=== PATIENT | female | born 1935 | race Caucasian/White ===

== ENCOUNTER 2022-08-26 15:22 | Outpatient (CLI) | payer MEDICARE, BC | END 2022-08-26 15:23 | disposition home or self-care (01) | LOC: CSHCT 15:22 | PROVIDERS: ATTEND Family Medicine | DX: M54.16 Radiculopathy, lumbar region (principal); M48.061 Spinal stenosis, lumbar region without neurogenic claudication; M48.07 Spinal stenosis, lumbosacral region | CPT/HCPCS: 72131 ==

== ENCOUNTER 2023-01-20 10:26 | Day surgery (SDC) | payer MEDICARE ==
[2023-01-16 08:40] VITALS: BP 172/81; TEMP 97.8; BMI 22.4
[~2023-01-20 10:26] MED LIST: FLU VACC QS2022-23(65YR UP)/PF 240 MCG/0.7 ML SYRINGE IM ONE
[2023-01-20] MEDS ORDERED: Sodium Bicarbonate 2.5 MEQ/5 ML VIAL ONE (10:49)
[2023-01-20] MEDS ORDERED: Lidocaine 1% PF 5 ML VIAL ONE (10:49)
== END 2023-01-20 13:20 | disposition home or self-care (01) ==
LOC: CSHRAD 10:26
PROVIDERS: ATTEND Neurological Surgery
DX: M48.062 Spinal stenosis, lumbar region with neurogenic claudication (principal); M47.816 Spondylosis without myelopathy or radiculopathy, lumbar region
CPT/HCPCS: 62304; 72132

== ENCOUNTER 2023-04-15 12:57 | Emergency (ER) | payer MEDICARE ==
[~2023-04-15 12:57] MED LIST changes: -FLU VACC QS2022-23(65YR UP)/PF 240 MCG/0.7 ML SYRINGE IM ONE; +Iopamidol 300 61% 100 ML VIAL FS ONE
[2023-04-15 13:47] LABS: #Basophils 0.1 10x3/uL (0.0-0.2); #Eosinphils 0.1 10x3/uL (0.0-0.5); #Monocytes 0.8 10x3/uL (0.0-1.1); #Neutrophils 9.6 10x3/uL (1.5-8.4); %Basophils 0.4 % (0.0-2.0); %Eosinophils 1.2 % (0.0-6.0); %Lymphocytes 10.4 % (18.0-47.0); %Monocytes 6.4 % (0.0-10.0); %Neutrophils 81.2 % (40.0-75.0); Hemoglobin 9.5 g/dL (12.0-15.5); Mean Corpuscular HGB CONC 30.5 g/dL (32.0-36.0); Mean Corpuscular Hemoglobin 26.8 pg (27.0-33.0); Mean Corpuscular Volume 87.6 fl (81.6-98.3); Mean Platelet Volume 10.3 fl (7.4-10.4); Platelet Count 154 10x3/uL (150-450); Red Blood Cell (RBC) Count 3.55 10x6/uL (3.90-5.03); White Blood Cell (WBC) Count 11.8 10x3/uL (3.5-10.5)
[2023-04-15 13:59] LABS: ALT (SGPT) 17 U/L (8-55); AST (SGOT) 27 U/L (5-34); Albumin 3.4 g/dL (3.4-4.8); Alkaline Phosphatase 68 U/L (40-110); Anion Gap 14 mmol/L (10-20); BUN (Urea Nitrogen) 19 mg/dL (9.8-20.1); Bilirubin, Total 0.8 mg/dL (0.2-1.2); Calc. Creatinine Clearance 0 mL/min (70-130); Calcium 9.1 mg/dL (7.8-10.44); Carbon Dioxide 23 mmol/L (23-31); Chloride 105 mmol/L (98-107); Estimated GFR 52; Globulin 3.1 g/dL (2.4-3.5); Glucose 158 mg/dL (83-110); Protein, Total 6.5 g/dL (5.8-8.1); Sodium 138 mmol/L (136-145)
[2023-04-15 15:39] LABS: INR-International Normal Ratio 1.2; PTT 26.2 sec (22.0-33.0); Prothrombin Time 12.4 sec (9.5-12.1)
[2023-04-15] MEDS ORDERED: Acetaminophen 500 MG TAB ONE (17:17)
[2023-04-15 17:27] LABS: Hemoglobin 8.7 g/dL (12.0-15.5)
[2023-04-15 17:40] LABS: Bilirubin Neg (Negative); Blood, Urine 25 (Negative); Clarity Clear (Clear); Glucose, Urine (Dipstick) Normal (Negative); Ketone, Urine Negative (Negative); Leukocyte 100 (Negative); Nitrite Negative (Negative); Protein, Urine (Dipstick) 30 mg/dl (Neg-Trace); Specific Gravity, Urine 1.015 (1.005-1.030); Urobilinogen Normal mg/dL (Less than 2)
[2023-04-15 17:55] LABS: Bacteria/HPF None Seen HPF (None Seen); CAUTI Indications for Culture Alt mental st,lethar; RBC/HPF 0-3 HPF (0-3); Squamous Epithelial 0-3 HPF (0-3); WBC/HPF 0-3 HPF (0-3)
[2023-04-15 17:56] LABS: Urine Culture Reflex No No
[2023-04-15] MEDS ORDERED: Ondansetron PF 4 MG/2 ML Vial ONE (18:34)
[2023-04-15] MEDS ORDERED: [UNRECOGNIZED DRUG - OTHER] IV SCH (19:30)
[2023-04-15] MEDS ORDERED: HUM PROTHROMBIN CPLX IV SCH ×2 (19:30)
[2023-04-15] MEDS ORDERED: [UNRECOGNIZED DRUG - OTHER] IV SCH (19:30)
[2023-04-15] MEDS ORDERED: HUMAN PROTHROMBIN COMPLX IV SCH (19:30)
[2023-04-15] MEDS ORDERED: STERILE WATER IV SCH (19:30)
== END 2023-04-15 20:52 | disposition short-term general hospital (02) ==
LOC: CSHERS 12:57
DX: S32.9XXA Fracture of unspecified parts of lumbosacral spine and pelvis, initial encounter for closed fracture (principal); D72.829 Elevated white blood cell count, unspecified; I10 Essential (primary) hypertension; Z79.899 Other long term (current) drug therapy; Z79.01 Long term (current) use of anticoagulants
CPT/HCPCS: 36415; 70450; 71045; 72125; 72192; 74177; 80053; 81001; 84484; 85025; 85610; 85730; 86850; 86900; 86901; 93005; J2405; J7168